=== PATIENT | male | born 1995 | race Hispanic/Latino ===

== ENCOUNTER 2019-10-10 03:31 | Emergency (ER) | payer MEDICAID, OTHER ==
[2019-10-10] MEDS ORDERED: ACETAMINOPHEN EXTRA STRENGTH 500 MG TABLET ONE (04:29)
[2019-10-10] MEDS ORDERED: OCTYL 2-CYANOACRYLATE 1 EACH TP ONE (04:33)
== END 2019-10-10 06:02 | disposition home or self-care (01) ==
LOC: EDH 03:31
DX: S06.0X0A Concussion without loss of consciousness, initial encounter (principal); S01.01XA Laceration without foreign body of scalp, initial encounter; S01.81XA Laceration without foreign body of other part of head, initial encounter; S93.401A Sprain of unspecified ligament of right ankle, initial encounter; S60.221A Contusion of right hand, initial encounter; Z90.49 Acquired absence of other specified parts of digestive tract; Z72.0 Tobacco use; Z88.8 Allergy status to other drugs, medicaments and biological substances; Y04.8XXA Assault by other bodily force, initial encounter; Y93.89 Activity, other specified; Y92.89 Other specified places as the place of occurrence of the external cause; Y99.8 Other external cause status
CPT/HCPCS: 12001; 12011; 70450; 73130